=== PATIENT | male | born 1990 | race American Indian/Alaskan Native ===

== ENCOUNTER 2017-06-03 18:28 | Emergency (ER) | payer SELFPAY ==
[~2017-06-03] VITALS: Ht 172.7 cm; Wt 63.5 kg
[~2017-06-03 18:28] MED LIST: AMOX500 PO; AMOX875 PO; Bactrim Ds Tab1 EACH PO; CEPH500 PO; Cleocin HCl300 MG PO; HYDACE5 PO; IBUP600 PO; NAPR500 PO; OMEP20ER PO; OXYACE5T PO; PENVK500 PO; Percocet 5-3251 EACH PO; SUCR1 PO; TRAM50 PO; TYLENOL AND MOTRIN
[2017-06-03] MEDS ORDERED: Bactrim Ds Tab1 EACH PO (19:43)
[2017-06-03] MEDS ORDERED: CEPH500 PO (19:43)
== END 2017-06-03 19:54 | disposition home or self-care (01) ==
LOC: ER 18:28
DX: L03.113 Cellulitis of right upper limb (principal); F17.200 Nicotine dependence, unspecified, uncomplicated
CPT/HCPCS: 73130; 99283; Q0163

== ENCOUNTER 2020-05-30 16:52 | Emergency (ER) | payer SELFPAY ==
[~2020-05-30] VITALS: Ht 172.7 cm; Wt 68.0 kg
[2020-05-30 17:56] LABS: BASOPHILS ABSOLUTE AUTO 0.07 K/mm3 (0.00-0.23); BASOPHILS PERCENT AUTO 1 % (0-2); EOSINOPHILS ABSOLUTE AUTO 0.16 K/mm3 (0.00-0.68); EOSINOPHILS PERCENT AUTO 1 % (0-6); Hematocrit 46.5 % (37.0-53.0); Hemoglobin 15.5 g/dL (13.5-17.5); IMMATURE GRAN ABSOLUTE AUTO 0.03 K/mm3 (0.00-0.10); IMMATURE GRAN PERCENT AUTO 0 % (0-1); LYMPHOCYTES ABSOLUTE AUTO 1.75 K/mm3 (0.84-5.20); LYMPHOCYTES PERCENT AUTO 15 % (21-46); MONOCYTES ABSOLUTE AUTO 1.11 K/mm3 (0.16-1.47); MONOCYTES PERCENT AUTO 9 % (4-13); Mean Corpuscular HGB 29.8 pg (26.0-34.0); Mean Corpuscular HGB Conc 33.3 g/dL (31.5-36.5); Mean Corpuscular Volume 89 fL (80-100); Mean Platelet Volume 8.9 fL (9.1-12.4); NEUTROPHILS ABSOLUTE AUTO 8.66 K/mm3 (1.96-9.15); NEUTROPHILS PERCENT AUTO 73 % (41-73); Platelet Count 351 K/mm3 (150-400); RDW Coefficient Variation 12.8 % (11.7-14.2); RDW Standard Deviation 42.1 fL (35.1-46.3); Red Blood Cell Count 5.21 M/mm3 (4.30-5.90); White Blood Cell Count 11.78 K/mm3 (4.00-11.30)
[2020-05-30] MEDS ORDERED: Cephalexin500 M1 PO (18:14)
[2020-05-30] MEDS ORDERED: Bactrim Ds Tab1 EACH PO (18:14)
[2020-05-30 18:17] LABS: Alanine Aminotransfer (ALT/SGP 28 U/L (12-78); Albumin, Blood 3.7 g/dL (3.4-5.0); Albumin/Globulin Ratio 0.9 (0.8-1.8); Alk Phos 101 U/L (50-136); Anion Gap 5 mmol/L (6-16); Aspartate Aminotrans (AST/SGOT 15 U/L (12-37); Bilirubin, Total 0.5 mg/dL (0.1-1.0); Blood Urea Nitrogen 11 mg/dL (8-24); Bun/Creatinine Ratio 11.5 (12.0-20.0); CO2, Blood 28 mmol/L (21-32); Calcium, Blood 8.8 mg/dL (8.5-10.1); Chloride, Blood 103 mmol/L (98-108); Creatinine, Blood 0.96 mg/dL (0.60-1.20); Globulin, Blood 4.1 g/dL (2.2-4.0); Glomerular Filtration Rate >60 (60-); Glucose, Blood 114 mg/dL (70-99); Potassium, Blood 3.5 mmol/L (3.5-5.5); Sodium, Blood 136 mmol/L (136-145); Total Protein, Blood 7.8 g/dL (6.4-8.2)
== END 2020-05-30 18:21 | disposition home or self-care (01) ==
LOC: ER 16:52
PROVIDERS: Physician Assistant
DX: L03.114 Cellulitis of left upper limb (principal); F17.210 Nicotine dependence, cigarettes, uncomplicated
CPT/HCPCS: 36415; 80053; 85025; 99283

== ENCOUNTER 2020-10-20 14:58 | Emergency (ER) | payer SELFPAY ==
[~2020-10-20] VITALS: Ht 177.8 cm; Wt 63.5 kg
[~2020-10-20 14:58] MED LIST changes: +Cephalexin500 M1 PO
[2020-10-20] MEDS ORDERED: Cleocin HCl300 MG PO (15:17)
== END 2020-10-20 15:18 | disposition home or self-care (01) ==
LOC: ER 14:58
DX: L02.415 Cutaneous abscess of right lower limb (principal); L03.115 Cellulitis of right lower limb
CPT/HCPCS: 99282

== ENCOUNTER 2021-02-27 10:49 | Emergency (ER) | payer OTHER ==
[~2021-02-27] VITALS: Ht 177.8 cm; Wt 72.6 kg
[2021-02-28] MEDS ORDERED: Veetids 500500 MG PO (05:11)
== END 2021-02-27 14:00 | disposition left against medical advice (07) ==
LOC: ER 10:49
DX: Z53.21 Procedure and treatment not carried out due to patient leaving prior to being seen by health care provider (principal)

== ENCOUNTER 2021-02-28 04:56 | Emergency (ER) | payer OTHER ==
[~2021-02-28] VITALS: Ht 177.8 cm; Wt 63.5 kg
[2021-02-28] MEDS ORDERED: Veetids 500500 MG PO (05:11)
== END 2021-02-28 05:19 | disposition home or self-care (01) ==
LOC: ER 04:56
DX: K02.9 Dental caries, unspecified (principal); F17.210 Nicotine dependence, cigarettes, uncomplicated
CPT/HCPCS: 99283; A9270

== ENCOUNTER 2021-11-04 05:41 | Emergency (ER) | payer OTHER ==
[~2021-11-04] VITALS: Ht 172.7 cm; Wt 59.0 kg
[~2021-11-04 05:41] MED LIST changes: +Veetids 500500 MG PO
[2021-11-04] MEDS ORDERED: SULTRIDS PO (06:11)
== END 2021-11-04 06:23 | disposition home or self-care (01) ==
LOC: ER 05:41
DX: L03.114 Cellulitis of left upper limb (principal); L03.113 Cellulitis of right upper limb; I80.8 Phlebitis and thrombophlebitis of other sites; F17.210 Nicotine dependence, cigarettes, uncomplicated; F19.11 Other psychoactive substance abuse, in remission
CPT/HCPCS: A9270

== ENCOUNTER 2022-04-21 07:48 | Emergency (ER) | payer OTHER ==
[~2022-04-21] VITALS: Ht 177.8 cm; Wt 61.2 kg
[~2022-04-21 07:48] MED LIST changes: +SULTRIDS PO
[2022-04-21] MEDS ORDERED: SULTRIDS PO ×2 (08:03→12:46)
== END 2022-04-21 08:11 | disposition home or self-care (01) ==
LOC: ER 07:48
DX: L08.9 Local infection of the skin and subcutaneous tissue, unspecified (principal); K13.0 Diseases of lips; F17.210 Nicotine dependence, cigarettes, uncomplicated
CPT/HCPCS: A9270

== ENCOUNTER 2022-04-22 05:49 | Inpatient (IN) | payer OTHER ==
[~2022-04-22] VITALS: Ht 177.8 cm; Wt 67.5 kg
[2022-04-22 07:25] LABS: BASOPHILS ABSOLUTE AUTO 0.08 K/mm3 (0.00-0.23); BASOPHILS PERCENT AUTO 0 % (0-2); EOSINOPHILS ABSOLUTE AUTO 0.03 K/mm3 (0.00-0.68); EOSINOPHILS PERCENT AUTO 0 % (0-6); Hematocrit 38.3 % (37.0-53.0); Hemoglobin 13.3 g/dL (13.5-17.5); IMMATURE GRAN ABSOLUTE AUTO 0.11 K/mm3 (0.00-0.10); IMMATURE GRAN PERCENT AUTO 1 % (0-1); LYMPHOCYTES ABSOLUTE AUTO 1.59 K/mm3 (0.84-5.20); LYMPHOCYTES PERCENT AUTO 7 % (21-46); MONOCYTES ABSOLUTE AUTO 1.86 K/mm3 (0.16-1.47); MONOCYTES PERCENT AUTO 8 % (4-13); Mean Corpuscular HGB 30.3 pg (26.0-34.0); Mean Corpuscular HGB Conc 34.7 g/dL (31.5-36.5); Mean Corpuscular Volume 87 fL (80-100); Mean Platelet Volume 9.4 fL (9.1-12.4); NEUTROPHILS ABSOLUTE AUTO 19.37 K/mm3 (1.96-9.15); NEUTROPHILS PERCENT AUTO 84 % (41-73); Platelet Count 264 K/mm3 (150-400); RDW Coefficient Variation 13.2 % (11.7-14.2); RDW Standard Deviation 41.6 fL (35.1-46.3); Red Blood Cell Count 4.39 M/mm3 (4.30-5.90); White Blood Cell Count 23.04 K/mm3 (4.00-11.30)
[2022-04-22 08:44] LABS: Bun/Creatinine Ratio 8.7 (12.0-20.0); Calcium, Blood 8.1 mg/dL (8.5-10.1); Creatinine, Blood 1.03 mg/dL (0.60-1.20); Potassium, Blood 3.7 mmol/L (3.5-5.5)
--- NOTE | 2022-04-22 17:37 | NUR ---
SHIFT SUMMARY PATIENT ADMITTED FROM ER AT 1200. PATIENT SETTLED INTO ROOM. PATIENT ORIENTED TO CALL LIGHT AND TV CONTROL. PATIENT DENIES PAIN, NAUSEA, AND SHORTNESS OF BREATH. PATIENT IS IND IN ROOM. PATIENT HAS FACIAL CELLULITIS WITH ABCESS. PATIENT TOELRATING FOOD WELL. PATIENT IS EATING AND DRINKING VERY WELL. PATIENT IS PLEASANT AND COOPERATIVE WITH CARE. PATIET SBP IN THE 90'S, LR BOLUS ORDERED, SBP IMPROVED TO 105.
--- NOTE | 2022-04-23 03:56 | NUR ---
WRECKER OPERATOR SUMMARY A&OX4. PATIENT EFFECTIVELY COMMUNICATES NEEDS. VSS. SBP >100. RR EVEN AND UNLABORED ON RA. PATIENT IS TOLERATING ABO THERAPY. GOOD INTAKE AND ABILITY TO EAT WITHOUT PAIN. NPO AFTER MIDNIGHT DUE TO POTENTIAL I&D TODAY. PAIN ASSESSED AND MEDICATED PER EMAR. PATIENT INVITED VISITORS @0130 AND WAS ANGERED WHEN DENIED ABILITY TO WALK THEM OUTSIDE. EDUCATION REGARDING VISITING HOURS AND HOSPITAL POLICY PROVIDED. LR INFUSING @150ML/HR. Q4 HOUR VITALS OBTAINED. BED LOW AND LOCKED. CALL LIGHT WITHIN REACH. THIS RN WILL CONTINUE TO CLOSELY MONITOR.
--- NOTE | 2022-04-23 04:43 | NUR ---
POSITIVE BLOOD CULTURES GRAM POSITIVE COCCI IN CLUSTERS. GRAM POSITIVE DIPLOCOCCI. SUBCULTURES IN PROGRESS. ANTIBIOTIC THERAPY CONSISTS OF VANCOMYCIN AND UNASYN. DR. COCHRAN NOTIFIED OF THIS AND AGREES WITH COVERAGE. NO CHANGES AT THIS TIME.
[2022-04-23 05:50] LABS: BASOPHILS ABSOLUTE AUTO 0.07 K/mm3 (0.00-0.23); BASOPHILS PERCENT AUTO 0 % (0-2); EOSINOPHILS ABSOLUTE AUTO 0.01 K/mm3 (0.00-0.68); EOSINOPHILS PERCENT AUTO 0 % (0-6); Hematocrit 41.1 % (37.0-53.0); Hemoglobin 13.8 g/dL (13.5-17.5); IMMATURE GRAN ABSOLUTE AUTO 0.28 K/mm3 (0.00-0.10); IMMATURE GRAN PERCENT AUTO 1 % (0-1); LYMPHOCYTES PERCENT AUTO 9 % (21-46); MONOCYTES ABSOLUTE AUTO 2.17 K/mm3 (0.16-1.47); MONOCYTES PERCENT AUTO 8 % (4-13); Mean Corpuscular HGB 29.6 pg (26.0-34.0); Mean Corpuscular HGB Conc 33.6 g/dL (31.5-36.5); Mean Corpuscular Volume 88 fL (80-100); Mean Platelet Volume 9.3 fL (9.1-12.4); NEUTROPHILS ABSOLUTE AUTO 21.24 K/mm3 (1.96-9.15); NEUTROPHILS PERCENT AUTO 82 % (41-73); Platelet Count 321 K/mm3 (150-400); RDW Coefficient Variation 13.1 % (11.7-14.2); RDW Standard Deviation 42.4 fL (35.1-46.3); Red Blood Cell Count 4.66 M/mm3 (4.30-5.90); White Blood Cell Count 26.07 K/mm3 (4.00-11.30)
--- NOTE | 2022-04-23 05:53 | NUR ---
PATIENT BEHAVIOR PATIENT'S BEHAVIOR INCREASINGLY LABILE THROUGHOUT THE MORNING, WITH EPISODES OF SUDDEN AGITATION AND OUTBURSTS. AN EXAMPLE OF THIS OCCURRED AROUND ~0500 THIS MORNING WHEN PATIENT STORMED OUT OF HIS ROOM AND ATTEMPTED TO LEAVE AMA AFTER BEING TOLD THAT HE HAS TO REMAIN NPO DUE TO THE POSSIBILITY OF A SECOND I&D PROCEDURE TODAY. THIS RN CALLED DR. COCHRAN TO CONFIRM NPO STATUS, AND IT WAS STATED BY DR. COCHRAN THAT IT WILL BE MAINTAINED UNTIL PATIENT IS FURTHER EVALUATED. PATIENT HAS BEEN AWAKE SINCE THIS RN ASSUMED CARE AND DID NOT SLEEP THROUGHOUT THE NIGHT. THERAPEUTIC COMMUNICATION AND PATIENT EDUCATION PROVIDED. THIS RN WILL CONTINUE TO MONITOR.
[2022-04-23 06:06] LABS: Bun/Creatinine Ratio 11.6 (12.0-20.0); Calcium, Blood 8.9 mg/dL (8.5-10.1); Creatinine, Blood 0.95 mg/dL (0.60-1.20); Potassium, Blood 3.7 mmol/L (3.5-5.5)
--- NOTE | 2022-04-23 09:42 | NUR ---
PT SIGNED OUT AMA @0510 PT STATE HE DID NOT CARE ANY MORE DR LOMAX ALSO SPOKE TO PT AND EXPLAIN THE RISK. IV WAS REMOVED PT WALKED SELF OUT.
[2022-04-24] MEDS ORDERED: CEFP200 PO (22:19)
== END 2022-04-23 08:30 | disposition left against medical advice (07) | DRG 854 ==
LOC: ER 05:49 → MEDS 10:06
PROVIDERS: Emergency Medicine; Nurse Practitioner Acute Care; ADMIT Internal Medicine
PROC: 0W920ZZ Drainage of Face, Open Approach (ICD-10-PCS; principal; 2022-04-22)
PROC: 3E03329 Introduction of Other Anti-infective into Peripheral Vein, Percutaneous Approach (ICD-10-PCS; 2022-04-22)
DX: A41.9 Sepsis, unspecified organism (principal); E87.1 Hypo-osmolality and hyponatremia; L03.211 Cellulitis of face; L02.01 Cutaneous abscess of face; Z28.21 Immunization not carried out because of patient refusal; F15.10 Other stimulant abuse, uncomplicated; K02.9 Dental caries, unspecified; F17.210 Nicotine dependence, cigarettes, uncomplicated; Z79.2 Long term (current) use of antibiotics
CPT/HCPCS: 10060; 36415; 70487; 80048; 83605; 85025; 87040; 87077; 87147; 87186; 96365-59; 96366-59; 96367-59; 96375-59; 99285-25; A9270; J0295; J2405; J3010; J3370; J7030; J7050; J7120; Q9967

== ENCOUNTER 2022-04-23 22:28 | Emergency (ER) | payer OTHER ==
[~2022-04-23] VITALS: Ht 177.8 cm; Wt 59.0 kg
[2022-04-23 23:21] LABS: BASOPHILS ABSOLUTE AUTO 0.05 K/mm3 (0.00-0.23); BASOPHILS PERCENT AUTO 0 % (0-2); EOSINOPHILS ABSOLUTE AUTO 0.07 K/mm3 (0.00-0.68); EOSINOPHILS PERCENT AUTO 1 % (0-6); Hematocrit 40.1 % (37.0-53.0); Hemoglobin 13.5 g/dL (13.5-17.5); IMMATURE GRAN ABSOLUTE AUTO 0.06 K/mm3 (0.00-0.10); IMMATURE GRAN PERCENT AUTO 0 % (0-1); LYMPHOCYTES ABSOLUTE AUTO 2.27 K/mm3 (0.84-5.20); LYMPHOCYTES PERCENT AUTO 17 % (21-46); MONOCYTES ABSOLUTE AUTO 1.42 K/mm3 (0.16-1.47); MONOCYTES PERCENT AUTO 11 % (4-13); Mean Corpuscular HGB 29.9 pg (26.0-34.0); Mean Corpuscular HGB Conc 33.7 g/dL (31.5-36.5); Mean Corpuscular Volume 89 fL (80-100); NEUTROPHILS ABSOLUTE AUTO 9.56 K/mm3 (1.96-9.15); NEUTROPHILS PERCENT AUTO 71 % (41-73); Platelet Count 267 K/mm3 (150-400); RDW Coefficient Variation 13.1 % (11.7-14.2); RDW Standard Deviation 42.6 fL (35.1-46.3); Red Blood Cell Count 4.51 M/mm3 (4.30-5.90); White Blood Cell Count 13.43 K/mm3 (4.00-11.30)
[2022-04-23 23:39] LABS: Albumin/Globulin Ratio 0.8 (0.8-1.8); Bilirubin, Total 0.6 mg/dL (0.1-1.0); Bun/Creatinine Ratio 11.2 (12.0-20.0); Calcium, Blood 8.5 mg/dL (8.5-10.1); Creatinine, Blood 1.07 mg/dL (0.60-1.20); Potassium, Blood 4.1 mmol/L (3.5-5.5)
[2022-04-24] MEDS ORDERED: CEFP200 PO (22:19)
== END 2022-04-24 02:13 | disposition left against medical advice (07) ==
LOC: ER 22:28
PROVIDERS: Physician Assistant
DX: A41.9 Sepsis, unspecified organism (principal); L03.211 Cellulitis of face; F17.210 Nicotine dependence, cigarettes, uncomplicated
CPT/HCPCS: 36415; 80053; 83605; 85025; 96374; 99284; J0295; J2543; J3370; J7030

== ENCOUNTER 2022-04-24 19:35 | Emergency (ER) | payer OTHER ==
[~2022-04-24] VITALS: Ht 177.8 cm; Wt 59.0 kg
[2022-04-24 20:09] LABS: BASOPHILS ABSOLUTE AUTO 0.07 K/mm3 (0.00-0.23); BASOPHILS PERCENT AUTO 1 % (0-2); EOSINOPHILS PERCENT AUTO 2 % (0-6); Hematocrit 39.3 % (37.0-53.0); Hemoglobin 13.3 g/dL (13.5-17.5); IMMATURE GRAN ABSOLUTE AUTO 0.02 K/mm3 (0.00-0.10); IMMATURE GRAN PERCENT AUTO 0 % (0-1); LYMPHOCYTES ABSOLUTE AUTO 2.14 K/mm3 (0.84-5.20); LYMPHOCYTES PERCENT AUTO 19 % (21-46); MONOCYTES ABSOLUTE AUTO 1.44 K/mm3 (0.16-1.47); MONOCYTES PERCENT AUTO 13 % (4-13); Mean Corpuscular HGB 29.9 pg (26.0-34.0); Mean Corpuscular HGB Conc 33.8 g/dL (31.5-36.5); Mean Corpuscular Volume 88 fL (80-100); Mean Platelet Volume 8.9 fL (9.1-12.4); NEUTROPHILS ABSOLUTE AUTO 7.66 K/mm3 (1.96-9.15); NEUTROPHILS PERCENT AUTO 66 % (41-73); Platelet Count 299 K/mm3 (150-400); RDW Coefficient Variation 13.2 % (11.7-14.2); RDW Standard Deviation 42.8 fL (35.1-46.3); Red Blood Cell Count 4.45 M/mm3 (4.30-5.90); White Blood Cell Count 11.53 K/mm3 (4.00-11.30)
[2022-04-24 20:28] LABS: Albumin/Globulin Ratio 0.7 (0.8-1.8); Bilirubin, Total 0.6 mg/dL (0.1-1.0); Bun/Creatinine Ratio 13.8 (12.0-20.0); Calcium, Blood 8.7 mg/dL (8.5-10.1); Creatinine, Blood 1.09 mg/dL (0.60-1.20); Globulin, Blood 4.3 g/dL (2.2-4.0); Potassium, Blood 3.9 mmol/L (3.5-5.5); Total Protein, Blood 7.3 g/dL (6.4-8.2)
[2022-04-24] MEDS ORDERED: CEFP200 PO (22:19)
== END 2022-04-24 22:34 | disposition home or self-care (01) ==
LOC: ER 19:35
PROVIDERS: Student in an Organized Health Care Education/Training Program
DX: K13.0 Diseases of lips (principal); F17.210 Nicotine dependence, cigarettes, uncomplicated; Z91.14 Patient's other noncompliance with medication regimen
CPT/HCPCS: 36415; 80053; 85025; 99283; A9270

== ENCOUNTER 2022-06-01 20:37 | Emergency (ER) | payer OTHER ==
[~2022-06-01] VITALS: Ht 177.8 cm; Wt 59.0 kg
[~2022-06-01 20:37] MED LIST changes: +CEFP200 PO
== END 2022-06-01 21:25 | disposition home or self-care (01) ==
LOC: ER 20:37
DX: S60.222A Contusion of left hand, initial encounter (principal); F17.210 Nicotine dependence, cigarettes, uncomplicated; W22.09XA Striking against other stationary object, initial encounter; Z79.899 Other long term (current) drug therapy
CPT/HCPCS: 73130; 99283-25

== ENCOUNTER 2022-07-17 11:34 | Emergency (ER) | payer OTHER ==
[~2022-07-17] VITALS: Ht 177.8 cm; Wt 63.5 kg
[2022-07-17] MEDS ORDERED: NARCAN4 M1 (12:25)
[2022-07-17 13:33] VITALS: BP 117/75
== END 2022-07-17 13:39 | disposition home or self-care (01) ==
LOC: ER 11:34
DX: T40.411A Poisoning by fentanyl or fentanyl analogs, accidental (unintentional), initial encounter (principal); F11.20 Opioid dependence, uncomplicated; F17.210 Nicotine dependence, cigarettes, uncomplicated
CPT/HCPCS: 99284

== ENCOUNTER 2023-04-14 18:02 | Emergency (ER) | payer OTHER ==
[~2023-04-14] VITALS: Ht 177.8 cm; Wt 63.5 kg
[~2023-04-14 18:02] MED LIST changes: +NARCAN4 M1
[2023-04-14 18:05] VITALS: BP 137/88
[2023-04-14] MEDS ORDERED: METH40 PO (18:08)
== END 2023-04-14 18:15 | disposition home or self-care (01) ==
LOC: ER 18:02
DX: Z76.0 Encounter for issue of repeat prescription (principal); F11.20 Opioid dependence, uncomplicated; Z79.899 Other long term (current) drug therapy; F17.210 Nicotine dependence, cigarettes, uncomplicated
CPT/HCPCS: 99281

== ENCOUNTER 2023-07-27 17:43 | Emergency (ER) | payer OTHER ==
[~2023-07-27] VITALS: Ht 177.8 cm; Wt 68.0 kg
[~2023-07-27 17:43] MED LIST changes: +METH40 PO
[2023-07-27 17:50] VITALS: BP 113/74
[2023-07-27] MEDS ORDERED: Methadone HCL 10 MG TAB PO ONE (18:10)
[2023-07-27] MEDS ORDERED: UNISOM SIMPLE2.5 MG PO (18:23)
[2023-07-27] MEDS ORDERED: PRAZ5 PO (18:23)
== END 2023-07-27 18:33 | disposition home or self-care (01) ==
LOC: ER 17:43
DX: Z76.0 Encounter for issue of repeat prescription (principal); F11.20 Opioid dependence, uncomplicated; Z79.899 Other long term (current) drug therapy; F17.210 Nicotine dependence, cigarettes, uncomplicated
CPT/HCPCS: 99281; A9270

== ENCOUNTER 2024-01-28 19:04 | Emergency (ER) | payer OTHER ==
[~2024-01-28] VITALS: Ht 177.8 cm; Wt 68.0 kg
[~2024-01-28 19:04] MED LIST changes: +PRAZ5 PO; +UNISOM SIMPLE2.5 MG PO
[2024-01-28 19:32] VITALS: BP 140/107
[2024-01-28] MEDS ORDERED: Mag Hydrox/AL Hydrox/Simeth 30 ML UDC PO ONE (22:00)
[2024-01-28] MEDS ORDERED: Lidocaine 2% Viscous Soln 15 ML UDC PO ONE (22:00)
[2024-01-28 22:25] LABS: BASOPHILS ABSOLUTE AUTO 0.07 K/mm3 (0.00-0.23); BASOPHILS PERCENT AUTO 1 % (0-2); EOSINOPHILS ABSOLUTE AUTO 0.09 K/mm3 (0.00-0.68); EOSINOPHILS PERCENT AUTO 1 % (0-6); Hematocrit 48.8 % (37.0-53.0); Hemoglobin 16.5 g/dL (13.5-17.5); IMMATURE GRAN ABSOLUTE AUTO 0.02 K/mm3 (0.00-0.10); IMMATURE GRAN PERCENT AUTO 0 % (0-1); LYMPHOCYTES ABSOLUTE AUTO 3.36 K/mm3 (0.84-5.20); LYMPHOCYTES PERCENT AUTO 38 % (21-46); MONOCYTES ABSOLUTE AUTO 0.56 K/mm3 (0.16-1.47); MONOCYTES PERCENT AUTO 6 % (4-13); Mean Corpuscular HGB 29.9 pg (26.0-34.0); Mean Corpuscular HGB Conc 33.8 g/dL (31.5-36.5); Mean Corpuscular Volume 88 fL (80-100); Mean Platelet Volume 8.7 fL (9.1-12.4); NEUTROPHILS ABSOLUTE AUTO 4.85 K/mm3 (1.96-9.15); NEUTROPHILS PERCENT AUTO 54 % (41-73); Platelet Count 415 K/mm3 (150-400); RDW Coefficient Variation 12.5 % (11.7-14.2); RDW Standard Deviation 40.8 fL (35.1-46.3); Red Blood Cell Count 5.52 M/mm3 (4.30-5.90); White Blood Cell Count 8.95 K/mm3 (4.00-11.30)
[2024-01-28 22:44] LABS: Albumin, Blood 4.3 g/dL (3.4-5.0); Albumin/Globulin Ratio 1.1 (0.8-1.8); Bilirubin, Total 0.8 mg/dL (0.1-1.0); Bun/Creatinine Ratio 10.1 (12.0-20.0); Creatinine, Blood 1.09 mg/dL (0.60-1.20); Potassium, Blood 4.3 mmol/L (3.5-5.5); Total Protein, Blood 8.3 g/dL (6.4-8.2)
[2024-01-28] MEDS ORDERED: OMEP20ER PO (22:59)
== END 2024-01-28 23:01 | disposition home or self-care (01) ==
LOC: ER 19:04
PROVIDERS: Student in an Organized Health Care Education/Training Program
DX: R07.81 Pleurodynia (principal); R10.9 Unspecified abdominal pain; Y04.0XXA Assault by unarmed brawl or fight, initial encounter; Y92.149 Unspecified place in prison as the place of occurrence of the external cause; F17.210 Nicotine dependence, cigarettes, uncomplicated; Z79.899 Other long term (current) drug therapy
CPT/HCPCS: 71100; 80053; 83690; 85025; 99283-25; A9270